=== PATIENT | female | born 1975 | race Caucasian/White ===

== ENCOUNTER 2019-01-09 05:21 | Emergency (ER) | payer OTHER ==
[~2019-01-09] VITALS: Ht 175.3 cm; Wt 74.8 kg
[~2019-01-09 05:21] MED LIST: BENADRYL25 MG PO; CLINDAMYCIN HC300 MG PO; DILAUDID4 MG PO; FLAGYL500 MG PO; GUIATUSS AC SY120 ML PO; KONDREMUL2.5 ML/5 M PO; LEVAQUIN500 MG PO; MELATONIN3 MG PO; MILK OF MA400 MG/5 M PO; MOTRIN IB200 MG PO; MULTIVITAMINS1 EAC7 PO; PERCOCET 10-321 EACH PO; PERCOCET 5-3251 EACH PO; PERCOCET 7.5-31 EACH PO; PHENTERMINE H37.5 MG PO; PHENTERMINE HCL30 MG PO; SEPTRA DS PO; TRAZODONE HCL100 MG PO
--- OUTSIDE RECORDS SUMMARY | 2019-01-09 05:24 | XMS ---
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 Odette has no Care Guidelines for this patient. Serg VISIT COUNT (12 MO.) 1 HOWARD Martins TOTAL 1 NOTE: Visits indicate total known visits. ED/UCC VISIT TRACKING (12 MO.) 01/09/2019 05:22 HOWARD Haddad [place] TYPE: Emergency COMPLAINT: - BLOOD IN URINE INPATIENT VISIT TRACKING (12 MO.) No inpatient visits to display in this time frame [id number]
[2019-01-09] MEDS ORDERED: PHENDIMETRAZINE35 MG PO (05:39)
[2019-01-09] MEDS ORDERED: BACTRIM DS TAB1 EACH PO (06:33)
== END 2019-01-09 06:52 | disposition home or self-care (01) ==
LOC: ED 05:21
PROC: 4A0D7LZ Measurement of Urinary Volume, Via Natural or Artificial Opening (ICD-10-PCS; principal; 2019-01-09)
DX: N39.0 Urinary tract infection, site not specified (principal); F17.200 Nicotine dependence, unspecified, uncomplicated; Z79.899 Other long term (current) drug therapy
CPT/HCPCS: 51798; 81001; 99283-25

== ENCOUNTER → 2020-01-12 | Emergency (ER) | payer OTHER ==
[~2020-01-12] VITALS: Ht 175.3 cm; Wt 74.8 kg
[~2020-01-12] MED LIST changes: +BACTRIM DS TAB1 EACH PO; +CODEINE-GUAIFE120 ML PO; +PHENDIMETRAZINE35 MG PO; +ZITHROMAX250 MG PO
--- OUTSIDE RECORDS SUMMARY | 2020-01-12 14:12 | XMS ---
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 EJudit VISIT COUNT (12 MO.) 1 HOWARD Martins TOTAL 1 NOTE: Visits indicate total known visits. ED/UCC VISIT TRACKING (12 MO.) 01/12/2020 14:10 HOWARD Haddad OR TYPE: Emergency COMPLAINT: - COUGH, SOB INPATIENT VISIT TRACKING (12 MO.) No inpatient visits to display in this time frame [id number]
== END ==
LOC: ED 14:09
DX: J18.9 Pneumonia, unspecified organism (principal); F17.200 Nicotine dependence, unspecified, uncomplicated
CPT/HCPCS: 71045; 87502; 99285-25

== ENCOUNTER 2025-09-25 19:04 | Emergency (ER) | payer OTHER ==
[~2025-09-25] VITALS: Ht 175.3 cm; Wt 75.4 kg
[2025-09-25 20:29] LABS: BLOOD/HGB, URINE TRACE-L (Negative); KETONE, URINE >=80 (Negative); LEUK ESTERASE, URINE NEGATIVE (negative); NITRITE, URINE NEGATIVE (negative)
[2025-09-25] MEDS ORDERED: SODIUM CHLORIDE 0.9% 2,000 ML IV SCH (20:30)
[2025-09-25] MEDS ORDERED: HYDROmorphone HCL 1 MG/ML SYR IV PRN (20:30)
[2025-09-25 20:35] LABS: EPITHELIAL CELLS, URINE SQUAMOUS 1+ /lpf (0-1+)
[2025-09-25 20:37] LABS: BACTERIA, URINE RARE /hpf (negative); CASTS, URINE NONE SEEN \\lpf; CRYSTALS, URINE NONE SEEN (0-1+); REFLEX CULTURE, URINE No (No)
[2025-09-25 20:40] LABS: BASOPHILS 0.5 % (0.1-1.2); EOSINOPHILS 0 % (0.7-5.8); LYMPHOCYTES 20.7 % (19.3-51.7); MCH 28.0 PG (25.6-32.2); MCHC 34.2 g/dL (32.2-35.5); MCV 81.9 fL (79.4-94.8); MONOCYTES 13.6 % (4.7-12.5); NEUTROPHILS 64.9 % (34.0-71.1); RBC 4.43 M/uL (3.93-5.22)
[2025-09-25 21:05] LABS: ALT (SGPT) 24.0 U/L (14-59); AST (SGOT) 12.0 U/L (15-37); GLOMERULAR FILTRATION RATE,EST 108.0 mL/min (>60); PROTEIN, TOTAL 7.1 g/dL (6.4-8.2); UREA NITROGEN 11.0 mg/dL (7-18)
[2025-09-25] MEDS ORDERED: HYDROCODON-ACE1 EA10 PO (22:00)
[2025-09-25] MEDS ORDERED: ONDANSETRON ODT8 MG PO (22:00)
[2025-09-25] MEDS ORDERED: ONDANSETRON 4 MG HOME.PACK SL ONE (22:00)
[2025-09-25] MEDS ORDERED: HYDROCODONE BIT/ACETAMINOPHEN 5/325 MG 1 TAB HOME.PACK PO PRN (22:00)
[2025-09-25 22:49] VITALS: BP 121/72
[2025-09-26] MEDS ORDERED: REGLAN10 MG PO (12:24)
[2025-09-26] MEDS ORDERED: PRILOSEC OTC20 MG PO (12:24)
== END 2025-09-25 22:51 | disposition home or self-care (01) ==
LOC: ED 19:04
PROVIDERS: Emergency Medicine
DX: R10.9 Unspecified abdominal pain (principal); R11.2 Nausea with vomiting, unspecified; R93.2 Abnormal findings on diagnostic imaging of liver and biliary tract; F17.200 Nicotine dependence, unspecified, uncomplicated; Z79.2 Long term (current) use of antibiotics
CPT/HCPCS: 36415; 74177; 80053; 81001; 83690; 84703; 85025; 96361; 96374; 96375; 96376; 99284-25; A9270; J1171; J2405; J7030; Q9967

== ENCOUNTER 2025-09-26 07:42 | Emergency (ER) | payer OTHER ==
[~2025-09-26] VITALS: Ht 175.3 cm; Wt 78.5 kg
--- NOTE | ~2025-09-26 | EKG ---
[facility] [address] [facility] [place], [place] [address] Draft EK completed, results pending confirmation PATIENT NAME: SRINIVASAN FELIZ Electrocardiogram DATE OF : 77 PHYSICIAN: PRELIMINARY REPORT #: [id number] REPORT IS CONFIDENTIAL AND NOT TO BE RELEASED WITHOUT AUTHORIZATION
[~2025-09-26 07:42] MED LIST changes: +HYDROCODON-ACE1 EA10 PO; +ONDANSETRON ODT8 MG PO
--- OUTSIDE RECORDS SUMMARY | 2025-09-26 07:50 | XMS ---
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 Physician Quality Cloth Tester 01/09/2019-Current PHONE: Unknown -, [facility] Dentist: Oriental Rug Repairer [facility] PHONE: [phone] -[place]- Dentist: Oriental Rug Repairer [facility] PHONE: [phone] DR. LEA Alexis/Center: Primary Care Current MD LUX SNELL \F\ <UNAVAIL> PHONE: [phone] Odette has no Care Guidelines for this patient. Serg VISIT COUNT (12 MO.) 2 HOWARD Martins TOTAL 2 NOTE: Visits indicate total known visits. ED/UCC VISIT TRACKING (12 MO.) 09/26/2025 07:43 HOWARD Haddad OR TYPE: Emergency COMPLAINT: - VOMITING 09/25/2025 19:05 HOWARD Haddad OR TYPE: Emergency COMPLAINT: - FEVER INPATIENT VISIT TRACKING (12 MO.) No inpatient visits to display in this time frame [id number]
[2025-09-26] MEDS ORDERED: HYDROmorphone HCL 1 MG/ML SYR IV ONE ×2 (08:00→10:15)
[2025-09-26] MEDS ORDERED: SODIUM CHLORIDE 0.9% 1,000 ML IV PRN ×2 (08:00→09:45)
[2025-09-26 08:27] LABS: BASOPHILS 0.4 % (0.1-1.2); EOSINOPHILS 0.2 % (0.7-5.8); LYMPHOCYTES 25.3 % (19.3-51.7); MCH 28.0 PG (25.6-32.2); MCHC 34.1 g/dL (32.2-35.5); MCV 82.1 fL (79.4-94.8); MONOCYTES 14.1 % (4.7-12.5); NEUTROPHILS 59.8 % (34.0-71.1); RBC 4.47 M/uL (3.93-5.22)
[2025-09-26 08:56] LABS: ALT (SGPT) 19.0 U/L (14-59); AST (SGOT) 12.0 U/L (15-37); GLOMERULAR FILTRATION RATE,EST 111.0 mL/min (>60); PROTEIN, TOTAL 6.7 g/dL (6.4-8.2); UREA NITROGEN 11.0 mg/dL (7-18)
[2025-09-26] MEDS ORDERED: LIDOCAINE & ANTACID 35 ML BTL PO ONE (09:30)
[2025-09-26] MEDS ORDERED: POTASSIUM CHLORIDE 20 MEQ/15 ML CUP PO ONE (10:00)
[2025-09-26] MEDS ORDERED: FAMOTIDINE 20 MG/ 2 ML VIAL IV ONE (10:00)
[2025-09-26] MEDS ORDERED: REGLAN10 MG PO (12:24)
[2025-09-26] MEDS ORDERED: PRILOSEC OTC20 MG PO (12:24)
[2025-09-26 12:42] VITALS: BP 110/77
[2025-09-27] MEDS ORDERED: PERCOCET 5-3251 EACH PO (00:46)
--- NOTE | 2025-09-27 12:02 | EKG ---
[facility] [address] [facility] [place] [address] Signed Sinus rhythm with frequent premature ventricular complexes Prolonged QT Abnormal ECG When compared with ECG of 26-SEP-2025 08:07, (Unconfirmed) Sinus rhythm has replaced Junctional rhythm Confirmed by Panchito Reid DO ([id number]) on 09/27/2025 12:02:01 PM Electronically Signed By: PANCHITO REID DO 09/27/25 1202 PATIENT NAME: SRINIVASAN FELIZ NATHAN Electrocardiogram DATE OF : 77 PHYSICIAN: PANCHITO REID DO REPORT #: [id number] REPORT IS CONFIDENTIAL AND NOT TO BE RELEASED WITHOUT AUTHORIZATION
== END 2025-09-26 12:43 | disposition home or self-care (01) ==
LOC: ED 07:42
PROVIDERS: Emergency Medicine
DX: R10.13 Epigastric pain (principal); F17.200 Nicotine dependence, unspecified, uncomplicated; Z79.2 Long term (current) use of antibiotics
CPT/HCPCS: 36415; 80053; 80307; 83690; 84484; 85025; 93005; 93010; 99283; A9270; J1171; J2405; J7030

== ENCOUNTER 2025-09-26 22:35 | Emergency (ER) | payer OTHER ==
[~2025-09-26] VITALS: Ht 175.3 cm; Wt 76.7 kg
[~2025-09-26 22:35] MED LIST changes: +PRILOSEC OTC20 MG PO; +REGLAN10 MG PO
--- OUTSIDE RECORDS SUMMARY | 2025-09-26 22:42 | XMS ---
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 Physician Head Of Science 01/09/2019-Current PHONE: Unknown -, [facility] Dentist: Documentation Coordinator [facility] PHONE: [phone] -[place]- Dentist: Documentation Coordinator [facility] PHONE: [phone] DR. LEA Alexis/Center: Primary Care Current MD LUX SNELL \F\ <UNAVAIL> PHONE: [phone] Odette has no Care Guidelines for this patient. Serg VISIT COUNT (12 MO.) 3 HOWARD Martins TOTAL 3 NOTE: Visits indicate total known visits. ED/UCC VISIT TRACKING (12 MO.) 09/26/2025 22:36 HOWARD Haddad OR TYPE: Emergency COMPLAINT: - ABDOMINAL PAIN 09/26/2025 07:43 HOWARD Haddad OR TYPE: Emergency COMPLAINT: - VOMITING 09/25/2025 19:05 HOWARD Haddad OR TYPE: Emergency COMPLAINT: - FEVER INPATIENT VISIT TRACKING (12 MO.) No inpatient visits to display in this time frame [id number]
[2025-09-26 22:50] VITALS: BP 123/75
[2025-09-27] MEDS ORDERED: OXYCODONE/ACETAMINOPHEN 1 TAB HOME.PACK PO ONE (00:45)
[2025-09-27] MEDS ORDERED: PERCOCET 5-3251 EACH PO (00:46)
== END 2025-09-27 01:00 | disposition home or self-care (01) ==
LOC: ED 22:35
DX: R10.10 Upper abdominal pain, unspecified (principal); F17.200 Nicotine dependence, unspecified, uncomplicated
CPT/HCPCS: 99283